=== PATIENT | male | born 1950 | race Caucasian/White ===

== ENCOUNTER 2017-12-06 14:03 | Emergency (ER) | payer MEDICARE, OTHER ==
[~2017-12-06] VITALS: Ht 185.4 cm; Wt 112.5 kg
[~2017-12-06 14:03] MED LIST: ACET500 PO; ASCO500 PO; ASPI325; ASPI325 PO; ATOR40TA PO; Advair Hfa 230-12 GM INH; Alavert D-12 A1 EACH PO; CALCIUM WITH V1 EACH PO; CARV3.125 PO; CARV6.25 PO; CENTRUM SILVER1 EAC2 PO; CLARITIN10 MG PO; CYAN500 PO; Carvedilol12.5 MG PO; DOCU100 PO; EZET10; FISH OIL 1,0001 EACH PO; FISH1000 PO; Flonase 0.05% N16 GM; GLUCOSAMINE1000 MG PO; HYDACE5; IBUP400 PO; LISI20 PO; LISI5 PO; Loratadine10 MG PO; METF500 PO; METO50ER; MULVITA; Multivitamin1 EAC1 PO; NITR.6SL PO; OMEP20ER PO; Omeprazole20 M1; PANT40 PO; ROSU10TA; RXSULTRIDS PO; SIMV40 PO; SPIR25 PO; SULTRIDS PO; TADA10TA PO; TRIA80TC TOP; Toprol Xl50 MG PO; VICKS VAPOINHA1 EACH INH
[2017-12-06 16:02] LABS: BASOPHILS ABSOLUTE AUTO 0.04 K/mm3 (0.00-0.23); BASOPHILS PERCENT AUTO 1 % (0-2); EOSINOPHILS ABSOLUTE AUTO 0.16 K/mm3 (0.00-0.68); EOSINOPHILS PERCENT AUTO 3 % (0-6); Hematocrit 39.9 % (37.0-53.0); Hemoglobin 14.4 g/dL (13.5-17.5); IMMATURE GRAN ABSOLUTE AUTO 0.01 K/mm3 (0.00-0.10); IMMATURE GRAN PERCENT AUTO 0 % (0-1); LYMPHOCYTES ABSOLUTE AUTO 2.07 K/mm3 (0.84-5.20); LYMPHOCYTES PERCENT AUTO 35 % (21-46); MONOCYTES ABSOLUTE AUTO 0.59 K/mm3 (0.16-1.47); MONOCYTES PERCENT AUTO 10 % (4-13); Mean Corpuscular HGB 34.1 pg (26.0-34.0); Mean Corpuscular HGB Conc 36.1 g/dL (31.5-36.5); Mean Corpuscular Volume 95 fL (80-100); Mean Platelet Volume 9.7 fL (9.1-12.4); NEUTROPHILS ABSOLUTE AUTO 2.99 K/mm3 (1.96-9.15); NEUTROPHILS PERCENT AUTO 51 % (41-73); Platelet Count 109 K/mm3 (150-400); RDW Coefficient Variation 11.9 % (11.7-14.2); RDW Standard Deviation 41.8 fL (35.1-46.3); Red Blood Cell Count 4.22 M/mm3 (4.30-5.90); White Blood Cell Count 5.86 K/mm3 (4.00-11.30)
[2017-12-06 16:26] LABS: Troponin I <0.015 ng/mL (0.000-0.040)
[2017-12-06 16:27] LABS: Alanine Aminotransfer (ALT/SGP 31 U/L (12-78); Albumin, Blood 4.3 g/dL (3.4-5.0); Albumin/Globulin Ratio 1.3 (0.8-1.8); Alk Phos 55 U/L (50-136); Anion Gap 4 mmol/L (6-16); Aspartate Aminotrans (AST/SGOT 19 U/L (12-37); Bilirubin, Total 0.8 mg/dL (0.1-1.0); Blood Urea Nitrogen 28 mg/dL (8-24); Bun/Creatinine Ratio 24.6 (12.0-20.0); CO2, Blood 29 mmol/L (21-32); Calcium, Blood 8.9 mg/dL (8.5-10.1); Chloride, Blood 105 mmol/L (98-108); Creatinine, Blood 1.14 mg/dL (0.60-1.20); Globulin, Blood 3.3 g/dL (2.2-4.0); Glomerular Filtration Rate >60 (60-); Glucose, Blood 106 mg/dL (70-99); Potassium, Blood 3.9 mmol/L (3.5-5.5); Sodium, Blood 138 mmol/L (136-145); Total Protein, Blood 7.6 g/dL (6.4-8.2)
[2017-12-06] MEDS ORDERED: [UNRECOGNIZED DRUG - OTHER] PO (16:31)
[2017-12-06] MEDS ORDERED: BONINE25 MG PO (18:45)
== END 2017-12-06 18:52 | disposition home or self-care (01) ==
LOC: ER 14:03
PROVIDERS: Emergency Medicine
DX: H81.10 Benign paroxysmal vertigo, unspecified ear (principal); Z79.899 Other long term (current) drug therapy; I25.10 Atherosclerotic heart disease of native coronary artery without angina pectoris; K21.9 Gastro-esophageal reflux disease without esophagitis; Z87.891 Personal history of nicotine dependence
CPT/HCPCS: 36415; 70450; 80053; 81000; 84484; 85025; 93005; 93010; 99284

== ENCOUNTER → 2018-05-25 | Outpatient (CLI) | payer MEDICARE, OTHER ==
[~2018-05-25] MED LIST changes: +BONINE25 MG PO; +[UNRECOGNIZED DRUG - OTHER] PO
[2018-05-25 14:33] LABS: Stool Occult Bld Immuno 1 Positive (NEGATIVE)
== END ==
LOC: LAB EV 09:30 → LAB FUT 05-11 18:10 → EDSTATUS 05-11 18:10
PROVIDERS: Student in an Organized Health Care Education/Training Program
DX: Z12.11 Encounter for screening for malignant neoplasm of colon (principal)
CPT/HCPCS: G0328

== ENCOUNTER 2019-02-05 12:01 | Emergency (ER) | payer MEDICARE, OTHER ==
[~2019-02-05] VITALS: Ht 185.4 cm; Wt 112.0 kg
[~2019-02-05 12:01] MED LIST changes: +CLOP75 PO; +Omeprazole20 M1 PO; +ZESTORETIC 20-1 EAC1 PO
[2019-02-05 12:25] LABS: BASOPHILS ABSOLUTE AUTO 0.04 K/mm3 (0.00-0.23); BASOPHILS PERCENT AUTO 1 % (0-2); EOSINOPHILS PERCENT AUTO 2 % (0-6); Hematocrit 40.9 % (37.0-53.0); Hemoglobin 13.9 g/dL (13.5-17.5); IMMATURE GRAN ABSOLUTE AUTO 0.01 K/mm3 (0.00-0.10); IMMATURE GRAN PERCENT AUTO 0 % (0-1); LYMPHOCYTES ABSOLUTE AUTO 1.75 K/mm3 (0.84-5.20); LYMPHOCYTES PERCENT AUTO 34 % (21-46); MONOCYTES ABSOLUTE AUTO 0.43 K/mm3 (0.16-1.47); MONOCYTES PERCENT AUTO 8 % (4-13); Mean Corpuscular HGB 31.7 pg (26.0-34.0); Mean Corpuscular Volume 93 fL (80-100); Mean Platelet Volume 9.7 fL (9.1-12.4); NEUTROPHILS ABSOLUTE AUTO 2.87 K/mm3 (1.96-9.15); NEUTROPHILS PERCENT AUTO 55 % (41-73); Platelet Count 128 K/mm3 (150-400); RDW Coefficient Variation 13.6 % (11.7-14.2); Red Blood Cell Count 4.39 M/mm3 (4.30-5.90)
[2019-02-05] MEDS ORDERED: ASPI81CH PO (12:43)
[2019-02-05 12:45] LABS: Alanine Aminotransfer (ALT/SGP 35 U/L (12-78); Albumin/Globulin Ratio 1.1 (0.8-1.8); Alk Phos 68 U/L (50-136); Anion Gap 5 mmol/L (6-16); Aspartate Aminotrans (AST/SGOT 25 U/L (12-37); Bilirubin, Total 0.5 mg/dL (0.1-1.0); Blood Urea Nitrogen 19 mg/dL (8-24); Bun/Creatinine Ratio 19.1 (12.0-20.0); CO2, Blood 27 mmol/L (21-32); Calcium, Blood 9.3 mg/dL (8.5-10.1); Chloride, Blood 106 mmol/L (98-108); Creatinine, Blood 0.99 mg/dL (0.60-1.20); Globulin, Blood 3.6 g/dL (2.2-4.0); Glomerular Filtration Rate >60 (60-); Glucose, Blood 114 mg/dL (70-99); Potassium, Blood 3.9 mmol/L (3.5-5.5); Sodium, Blood 138 mmol/L (136-145); Total Protein, Blood 7.6 g/dL (6.4-8.2)
[2019-02-05] MEDS ORDERED: ZESTORETIC 20-121 EA PO (12:45)
[2019-02-05] MEDS ORDERED: POTCHL10ER PO (12:46)
[2019-02-05] MEDS ORDERED: GINKGO BILOBA120 MG PO (12:48)
== END 2019-02-05 15:15 | disposition home or self-care (01) ==
LOC: ER 12:01
PROVIDERS: Emergency Medicine
DX: H81.399 Other peripheral vertigo, unspecified ear (principal); K21.9 Gastro-esophageal reflux disease without esophagitis; Z87.891 Personal history of nicotine dependence; Z79.899 Other long term (current) drug therapy; Z79.82 Long term (current) use of aspirin
CPT/HCPCS: 36415; 80053; 85025; 93005; 93010; 96360; 99284-25; J7030

== ENCOUNTER 2019-02-17 06:45 | Emergency (ER) | payer MEDICARE, OTHER ==
[~2019-02-17] VITALS: Ht 185.4 cm; Wt 108.9 kg
[~2019-02-17 06:45] MED LIST changes: +ASPI81CH PO; +GINKGO BILOBA120 MG PO; +POTCHL10ER PO; +ZESTORETIC 20-121 EA PO
[2019-02-17] MEDS ORDERED: OMEPRAZOLE20 MG PO (07:45)
[2019-02-17] MEDS ORDERED: ZESTORETIC 20-1 EACH PO (07:46)
== END 2019-02-17 07:53 | disposition home or self-care (01) ==
LOC: ER 06:45
DX: M79.671 Pain in right foot (principal); Z79.899 Other long term (current) drug therapy; Z79.82 Long term (current) use of aspirin; I11.0 Hypertensive heart disease with heart failure; I50.9 Heart failure, unspecified; E78.5 Hyperlipidemia, unspecified; K21.9 Gastro-esophageal reflux disease without esophagitis
CPT/HCPCS: 99283

== ENCOUNTER 2019-07-11 10:01 | Day surgery (SDC) | payer MEDICARE, OTHER ==
[~2019-07-11] VITALS: Ht 185.4 cm; Wt 108.9 kg
[~2019-07-11 10:01] MED LIST changes: +OMEPRAZOLE20 MG PO; +ZESTORETIC 20-1 EACH PO
[2019-07-11] MEDS ORDERED: SUPHEDRINE SINU30 MG (10:32)
--- NOTE | 2019-07-11 14:35 | NUR ---
07/11/19 1435 Marcelo Juárez LATE ENTRY-USED 14CC OF NORMAL SALINE IN RAISE POLYP AND 9CC ELEVIEW THEN USED SPOT MARKER ON RECTAL POLYP.
== END 2019-07-11 12:50 | disposition home or self-care (01) ==
LOC: ORSCSDS 10:01
PROVIDERS: Internal Medicine Gastroenterology
PROC: 0DBM8ZX Excision of Descending Colon, Via Natural or Artificial Opening Endoscopic, Diagnostic (ICD-10-PCS; principal; 2019-07-11 11:15)
PROC: 3E0H8GC Introduction of Other Therapeutic Substance into Lower GI, Via Natural or Artificial Opening Endoscopic (ICD-10-PCS; principal; 2019-07-11 11:15)
PROC: 0DBK8ZX Excision of Ascending Colon, Via Natural or Artificial Opening Endoscopic, Diagnostic (ICD-10-PCS; principal; 2019-07-11 11:15)
PROC: 0DBP8ZX Excision of Rectum, Via Natural or Artificial Opening Endoscopic, Diagnostic (ICD-10-PCS; principal; 2019-07-11 11:15)
DX: Z12.11 Encounter for screening for malignant neoplasm of colon (principal); Z86.010 Personal history of colon polyps; D12.2 Benign neoplasm of ascending colon; D12.4 Benign neoplasm of descending colon; D12.8 Benign neoplasm of rectum; I12.9 Hypertensive chronic kidney disease with stage 1 through stage 4 chronic kidney disease, or unspecified chronic kidney disease; N18.9 Chronic kidney disease, unspecified; I25.10 Atherosclerotic heart disease of native coronary artery without angina pectoris; Z87.891 Personal history of nicotine dependence; Z79.899 Other long term (current) drug therapy
CPT/HCPCS: 88305; J2704; J7120

== ENCOUNTER 2019-09-27 11:43 | Emergency (ER) | payer MEDICARE, OTHER ==
[~2019-09-27] VITALS: Ht 185.4 cm; Wt 107.5 kg
[~2019-09-27 11:43] MED LIST changes: +SUPHEDRINE SINU30 MG
[2019-09-27] MEDS ORDERED: HYDR1TAB94 PO (12:13)
[2019-09-27] MEDS ORDERED: CYCL10 PO (12:13)
== END 2019-09-27 12:32 | disposition home or self-care (01) ==
LOC: ER 11:43
DX: S46.911A Strain of unspecified muscle, fascia and tendon at shoulder and upper arm level, right arm, initial encounter (principal); I25.10 Atherosclerotic heart disease of native coronary artery without angina pectoris; I11.0 Hypertensive heart disease with heart failure; I50.9 Heart failure, unspecified; E78.5 Hyperlipidemia, unspecified; K21.9 Gastro-esophageal reflux disease without esophagitis; Z79.899 Other long term (current) drug therapy; Z79.01 Long term (current) use of anticoagulants; Z87.891 Personal history of nicotine dependence; X58.XXXA Exposure to other specified factors, initial encounter
CPT/HCPCS: 99283

== ENCOUNTER 2020-02-06 20:08 | Emergency (ER) | payer MEDICARE, OTHER ==
[~2020-02-06] VITALS: Ht 185.4 cm; Wt 108.9 kg
[~2020-02-06 20:08] MED LIST changes: +CYCL10 PO; +HYDR1TAB94 PO
[2020-02-06 20:58] LABS: BASOPHILS ABSOLUTE AUTO 0.04 K/mm3 (0.00-0.23); BASOPHILS PERCENT AUTO 1 % (0-2); EOSINOPHILS PERCENT AUTO 2 % (0-6); Hematocrit 41.6 % (37.0-53.0); Hemoglobin 14.4 g/dL (13.5-17.5); IMMATURE GRAN ABSOLUTE AUTO 0.01 K/mm3 (0.00-0.10); IMMATURE GRAN PERCENT AUTO 0 % (0-1); LYMPHOCYTES ABSOLUTE AUTO 2.29 K/mm3 (0.84-5.20); LYMPHOCYTES PERCENT AUTO 35 % (21-46); MONOCYTES ABSOLUTE AUTO 0.62 K/mm3 (0.16-1.47); MONOCYTES PERCENT AUTO 9 % (4-13); Mean Corpuscular HGB 32.1 pg (26.0-34.0); Mean Corpuscular HGB Conc 34.6 g/dL (31.5-36.5); Mean Corpuscular Volume 93 fL (80-100); Mean Platelet Volume 10.1 fL (9.1-12.4); NEUTROPHILS ABSOLUTE AUTO 3.54 K/mm3 (1.96-9.15); NEUTROPHILS PERCENT AUTO 54 % (41-73); Platelet Count 118 K/mm3 (150-400); RDW Coefficient Variation 12.9 % (11.7-14.2); RDW Standard Deviation 43.8 fL (35.1-46.3); Red Blood Cell Count 4.48 M/mm3 (4.30-5.90)
[2020-02-06 21:14] LABS: Alanine Aminotransfer (ALT/SGP 32 U/L (12-78); Albumin/Globulin Ratio 1.2 (0.8-1.8); Alk Phos 64 U/L (50-136); Anion Gap 4 mmol/L (6-16); Aspartate Aminotrans (AST/SGOT 22 U/L (12-37); Bilirubin, Total 0.4 mg/dL (0.1-1.0); Blood Urea Nitrogen 24 mg/dL (8-24); Bun/Creatinine Ratio 20.3 (12.0-20.0); CO2, Blood 27 mmol/L (21-32); Calcium, Blood 8.5 mg/dL (8.5-10.1); Chloride, Blood 109 mmol/L (98-108); Creatinine, Blood 1.18 mg/dL (0.60-1.20); Globulin, Blood 3.4 g/dL (2.2-4.0); Glomerular Filtration Rate >60 (60-); Glucose, Blood 113 mg/dL (70-99); Potassium, Blood 3.7 mmol/L (3.5-5.5); Sodium, Blood 140 mmol/L (136-145); Total Protein, Blood 7.4 g/dL (6.4-8.2)
== END 2020-02-07 00:44 | disposition home or self-care (01) ==
LOC: ER 20:08
PROVIDERS: Emergency Medicine
DX: I74.5 Embolism and thrombosis of iliac artery (principal); Z79.899 Other long term (current) drug therapy; I25.119 Atherosclerotic heart disease of native coronary artery with unspecified angina pectoris; K21.9 Gastro-esophageal reflux disease without esophagitis; Z87.891 Personal history of nicotine dependence
CPT/HCPCS: 36415; 74174; 80053; 85025; 99284-25; Q9967

== ENCOUNTER 2020-05-15 10:34 | Emergency (ER) | payer MEDICARE, OTHER ==
[~2020-05-15] VITALS: Ht 185.4 cm; Wt 108.9 kg
[~2020-05-15 10:34] MED LIST changes: +GINSENG PO
[2020-05-15 11:04] LABS: BASOPHILS ABSOLUTE AUTO 0.02 K/mm3 (0.00-0.23); BASOPHILS PERCENT AUTO 0 % (0-2); EOSINOPHILS ABSOLUTE AUTO 0.04 K/mm3 (0.00-0.68); EOSINOPHILS PERCENT AUTO 1 % (0-6); Hematocrit 37.6 % (37.0-53.0); Hemoglobin 13.4 g/dL (13.5-17.5); IMMATURE GRAN ABSOLUTE AUTO 0.02 K/mm3 (0.00-0.10); IMMATURE GRAN PERCENT AUTO 0 % (0-1); LYMPHOCYTES ABSOLUTE AUTO 1.21 K/mm3 (0.84-5.20); LYMPHOCYTES PERCENT AUTO 20 % (21-46); MONOCYTES PERCENT AUTO 8 % (4-13); Mean Corpuscular HGB 33.1 pg (26.0-34.0); Mean Corpuscular HGB Conc 35.6 g/dL (31.5-36.5); Mean Corpuscular Volume 93 fL (80-100); Mean Platelet Volume 9.9 fL (9.1-12.4); NEUTROPHILS ABSOLUTE AUTO 4.29 K/mm3 (1.96-9.15); NEUTROPHILS PERCENT AUTO 71 % (41-73); Platelet Count 115 K/mm3 (150-400); RDW Coefficient Variation 13.5 % (11.7-14.2); RDW Standard Deviation 45.6 fL (35.1-46.3); Red Blood Cell Count 4.05 M/mm3 (4.30-5.90); White Blood Cell Count 6.08 K/mm3 (4.00-11.30)
[2020-05-15 11:20] LABS: Alanine Aminotransfer (ALT/SGP 23 U/L (12-78); Albumin, Blood 3.5 g/dL (3.4-5.0); Alk Phos 77 U/L (50-136); Anion Gap 7 mmol/L (6-16); Aspartate Aminotrans (AST/SGOT 15 U/L (12-37); Bilirubin, Total 0.6 mg/dL (0.1-1.0); Blood Urea Nitrogen 19 mg/dL (8-24); Bun/Creatinine Ratio 15.3 (12.0-20.0); CO2, Blood 25 mmol/L (21-32); Calcium, Blood 8.8 mg/dL (8.5-10.1); Chloride, Blood 106 mmol/L (98-108); Creatinine, Blood 1.24 mg/dL (0.60-1.20); Globulin, Blood 3.6 g/dL (2.2-4.0); Glomerular Filtration Rate >60 (60-); Glucose, Blood 140 mg/dL (70-99); Potassium, Blood 3.6 mmol/L (3.5-5.5); Sodium, Blood 138 mmol/L (136-145); Total Protein, Blood 7.1 g/dL (6.4-8.2); Troponin I <0.015 ng/mL (0.000-0.040)
[2020-05-15 11:40] LABS: Source, Urine Voided
[2020-05-15 11:44] LABS: Appearance, Urine Clear (Clear); Bilirubin, Urine Neg (Neg); Blood, Urine Neg (Neg); Color, Urine Yellow (P-Yellow); Glucose Qualitative, Urine Neg (Neg); Ketones, Urine Neg (Neg); Leukocyte Esterase, Urine 1+ (Neg); Nitrite, Urine Neg (Neg); Protein, Urine 2+ (Neg); Specific Gravity, Urine 1.015 (1.003-1.022); Urobilinogen, Urine NORM (Normal)
[2020-05-15 12:15] LABS: Red Blood Cells, Urine 0-2 /hpf (0-2); Squamous Epithelial Cells Few /hpf (Few); White Blood Cells, Urine 0-2 /hpf (0-5)
[2020-05-15 12:16] LABS: Bacteria Rare /hpf; Granular Casts 0-2 /lpf (0); Mucus Mod (0-Heavy)
[2020-05-15] MEDS ORDERED: Coreg6.25 MG PO (13:11)
== END 2020-05-15 13:48 | disposition home or self-care (01) ==
LOC: ER 10:34
PROVIDERS: Emergency Medicine
DX: E87.8 Other disorders of electrolyte and fluid balance, not elsewhere classified (principal); I49.01 Ventricular fibrillation; K21.9 Gastro-esophageal reflux disease without esophagitis; I25.119 Atherosclerotic heart disease of native coronary artery with unspecified angina pectoris; Z95.810 Presence of automatic (implantable) cardiac defibrillator; Z79.899 Other long term (current) drug therapy; Z79.02 Long term (current) use of antithrombotics/antiplatelets; Z87.891 Personal history of nicotine dependence
CPT/HCPCS: 36415; 71045; 80053; 81001; 83735; 83880; 84484; 85025; 93005; 93010; 96360; 96361; 99284-25; J7030

== ENCOUNTER 2020-06-16 23:41 | Emergency (ER) | payer MEDICARE, OTHER ==
[~2020-06-16] VITALS: Ht 185.4 cm; Wt 107.5 kg
[~2020-06-16 23:41] MED LIST changes: +Coreg6.25 MG PO
[2020-06-17] MEDS ORDERED: LIDO700A20 TOP (02:21)
[2020-06-17] MEDS ORDERED: CYCL10 PO (02:21)
[2020-06-18] MEDS ORDERED: Amiodarone HCl200 MG PO (09:06)
[2020-06-18] MEDS ORDERED: OMEGA-3100 MG PO (09:08)
[2020-06-18] MEDS ORDERED: OXYACE7.5T PO (10:58)
[2020-06-18] MEDS ORDERED: PRED20 PO (10:58)
== END 2020-06-17 02:30 | disposition home or self-care (01) ==
LOC: ER 23:41
DX: S16.1XXA Strain of muscle, fascia and tendon at neck level, initial encounter (principal); I25.10 Atherosclerotic heart disease of native coronary artery without angina pectoris; K21.9 Gastro-esophageal reflux disease without esophagitis; Z79.02 Long term (current) use of antithrombotics/antiplatelets; Z79.899 Other long term (current) drug therapy; Z87.891 Personal history of nicotine dependence; Z95.810 Presence of automatic (implantable) cardiac defibrillator; X50.1XXA Overexertion from prolonged static or awkward postures, initial encounter
CPT/HCPCS: 99283; A9270-GY; J1885

== ENCOUNTER 2020-06-18 08:27 | Emergency (ER) | payer MEDICARE, OTHER ==
[~2020-06-18] VITALS: Ht 185.4 cm; Wt 107.5 kg
[~2020-06-18 08:27] MED LIST changes: +LIDO700A20 TOP
[2020-06-18] MEDS ORDERED: Amiodarone HCl200 MG PO (09:06)
[2020-06-18] MEDS ORDERED: OMEGA-3100 MG PO (09:08)
[2020-06-18] MEDS ORDERED: OXYACE7.5T PO (10:58)
[2020-06-18] MEDS ORDERED: PRED20 PO (10:58)
== END 2020-06-18 11:26 | disposition home or self-care (01) ==
LOC: ER 08:27
DX: M54.2 Cervicalgia (principal); R25.2 Cramp and spasm; K21.9 Gastro-esophageal reflux disease without esophagitis; I25.10 Atherosclerotic heart disease of native coronary artery without angina pectoris; Z79.02 Long term (current) use of antithrombotics/antiplatelets; Z79.899 Other long term (current) drug therapy; Z87.891 Personal history of nicotine dependence
CPT/HCPCS: 99283; J1100

== ENCOUNTER 2020-06-22 22:08 | Emergency (ER) | payer MEDICARE, OTHER ==
[~2020-06-22] VITALS: Ht 185.4 cm; Wt 108.9 kg
[~2020-06-22 22:08] MED LIST changes: +Amiodarone HCl200 MG PO; +OMEGA-3100 MG PO; +OXYACE7.5T PO; +PRED20 PO
== END 2020-06-23 00:25 | disposition home or self-care (01) ==
LOC: ER 22:08
DX: G89.29 Other chronic pain (principal); M54.5 Low back pain; I25.810 Atherosclerosis of coronary artery bypass graft(s) without angina pectoris; K21.9 Gastro-esophageal reflux disease without esophagitis; Z87.891 Personal history of nicotine dependence; Z79.02 Long term (current) use of antithrombotics/antiplatelets; Z79.899 Other long term (current) drug therapy; Z79.52 Long term (current) use of systemic steroids
CPT/HCPCS: 96372; 99283-25; J1170; J1885

== ENCOUNTER 2020-10-04 08:37 | Day surgery (SDC) | payer MEDICARE, OTHER ==
[~2020-10-04] VITALS: Ht 185.4 cm; Wt 98.2 kg
[~2020-10-04 08:37] MED LIST changes: +FISH OIL 1,2001 EAC1 PO; +Lasix20 MG PO
[2020-10-04 10:40] LABS: Anion Gap 3 mmol/L (6-16); Blood Urea Nitrogen 14 mg/dL (8-24); Bun/Creatinine Ratio 14.2 (12.0-20.0); CO2, Blood 31 mmol/L (21-32); Calcium, Blood 8.5 mg/dL (8.5-10.1); Chloride, Blood 102 mmol/L (98-108); Creatinine, Blood 0.99 mg/dL (0.60-1.20); Glomerular Filtration Rate >60 (60-); Glucose, Blood 107 mg/dL (70-99); Potassium, Blood 4.1 mmol/L (3.5-5.5); Sodium, Blood 136 mmol/L (136-145)
--- NOTE | 2020-10-04 15:36 | NUR ---
PT DRESSED, IV DC'D INTACT, R GROIN SITE STABLE, PT AMB TO BTR OK, CALLED FOR RIDE HOME, WILL DC BY WC SHORTLY
--- NOTE | 2020-10-04 16:00 | NUR ---
PT DC'D BY WC, CAREGIVER DRIVING PT HOME
== END 2020-10-04 16:18 | disposition home or self-care (01) ==
LOC: MHTC 08:37
PROVIDERS: Internal Medicine Cardiovascular Disease
DX: I25.118 Atherosclerotic heart disease of native coronary artery with other forms of angina pectoris (principal); I49.01 Ventricular fibrillation; I47.2 Ventricular tachycardia; E78.5 Hyperlipidemia, unspecified; G47.33 Obstructive sleep apnea (adult) (pediatric); I25.5 Ischemic cardiomyopathy; I25.2 Old myocardial infarction; E11.9 Type 2 diabetes mellitus without complications; Z95.1 Presence of aortocoronary bypass graft; Z95.810 Presence of automatic (implantable) cardiac defibrillator; Z87.891 Personal history of nicotine dependence; Z86.73 Personal history of transient ischemic attack (TIA), and cerebral infarction without residual deficits
CPT/HCPCS: 76937; 80048; 93005; 93010; 93455; 93459; 99152; 99153; A9270; C1769; C1894; J1644; J2250; J3010; J7030; J7050; Q9967

== ENCOUNTER 2020-11-06 15:19 | Emergency (ER) | payer MEDICARE, OTHER ==
[~2020-11-06] VITALS: Ht 185.4 cm; Wt 98.9 kg
[2020-11-06 15:55] LABS: BASOPHILS ABSOLUTE AUTO 0.02 K/mm3 (0.00-0.23); BASOPHILS PERCENT AUTO 0 % (0-2); EOSINOPHILS PERCENT AUTO 0 % (0-6); Hematocrit 31.3 % (37.0-53.0); Hemoglobin 10.8 g/dL (13.5-17.5); IMMATURE GRAN ABSOLUTE AUTO 0.03 K/mm3 (0.00-0.10); IMMATURE GRAN PERCENT AUTO 0 % (0-1); LYMPHOCYTES ABSOLUTE AUTO 0.65 K/mm3 (0.84-5.20); LYMPHOCYTES PERCENT AUTO 9 % (21-46); MONOCYTES ABSOLUTE AUTO 0.42 K/mm3 (0.16-1.47); MONOCYTES PERCENT AUTO 6 % (4-13); Mean Corpuscular HGB 32.6 pg (26.0-34.0); Mean Corpuscular HGB Conc 34.5 g/dL (31.5-36.5); Mean Corpuscular Volume 95 fL (80-100); Mean Platelet Volume 10.9 fL (9.1-12.4); NEUTROPHILS ABSOLUTE AUTO 6.25 K/mm3 (1.96-9.15); NEUTROPHILS PERCENT AUTO 85 % (41-73); Platelet Count 86 K/mm3 (150-400); RDW Coefficient Variation 14.2 % (11.7-14.2); RDW Standard Deviation 48.3 fL (35.1-46.3); Red Blood Cell Count 3.31 M/mm3 (4.30-5.90); White Blood Cell Count 7.37 K/mm3 (4.00-11.30)
[2020-11-06 16:15] LABS: Alanine Aminotransfer (ALT/SGP 21 U/L (12-78); Albumin, Blood 2.8 g/dL (3.4-5.0); Albumin/Globulin Ratio 0.7 (0.8-1.8); Alk Phos 69 U/L (50-136); Anion Gap 8 mmol/L (6-16); Aspartate Aminotrans (AST/SGOT 15 U/L (12-37); Bilirubin, Total 0.6 mg/dL (0.1-1.0); Blood Urea Nitrogen 23 mg/dL (8-24); Bun/Creatinine Ratio 22.3 (12.0-20.0); CO2, Blood 26 mmol/L (21-32); Calcium, Blood 8.4 mg/dL (8.5-10.1); Chloride, Blood 92 mmol/L (98-108); Creatinine, Blood 1.03 mg/dL (0.60-1.20); Globulin, Blood 3.8 g/dL (2.2-4.0); Glomerular Filtration Rate >60 (60-); Glucose, Blood 142 mg/dL (70-99); Potassium, Blood 3.8 mmol/L (3.5-5.5); Sodium, Blood 126 mmol/L (136-145); Total Protein, Blood 6.6 g/dL (6.4-8.2)
[2020-11-06] MEDS ORDERED: METO25ER (17:33)
[2020-11-06] MEDS ORDERED: HYDCHL25 (17:33)
== END 2020-11-06 18:53 | disposition home or self-care (01) ==
LOC: ER 15:19
PROVIDERS: Emergency Medicine
DX: R53.81 Other malaise (principal); R53.83 Other fatigue; R63.0 Anorexia; Z79.02 Long term (current) use of antithrombotics/antiplatelets; Z79.899 Other long term (current) drug therapy
CPT/HCPCS: 36415; 80053; 85025; 93005; 93010; 99284-25

== ENCOUNTER 2020-11-11 11:12 | Inpatient (IN) | payer MEDICARE, OTHER ==
[~2020-11-11] VITALS: Ht 185.4 cm; Wt 97.0 kg
[~2020-11-11 11:12] MED LIST changes: +HYDCHL25; +METO25ER
[2020-11-11 12:06] LABS: BASOPHILS ABSOLUTE AUTO 0.03 K/mm3 (0.00-0.23); BASOPHILS PERCENT AUTO 0 % (0-2); EOSINOPHILS PERCENT AUTO 0 % (0-6); Hematocrit 35.3 % (37.0-53.0); Hemoglobin 12.2 g/dL (13.5-17.5); IMMATURE GRAN ABSOLUTE AUTO 0.11 K/mm3 (0.00-0.10); IMMATURE GRAN PERCENT AUTO 1 % (0-1); LYMPHOCYTES ABSOLUTE AUTO 0.48 K/mm3 (0.84-5.20); LYMPHOCYTES PERCENT AUTO 4 % (21-46); MONOCYTES ABSOLUTE AUTO 0.81 K/mm3 (0.16-1.47); MONOCYTES PERCENT AUTO 6 % (4-13); Mean Corpuscular HGB 33.2 pg (26.0-34.0); Mean Corpuscular HGB Conc 34.6 g/dL (31.5-36.5); Mean Corpuscular Volume 96 fL (80-100); Mean Platelet Volume 11.4 fL (9.1-12.4); NEUTROPHILS ABSOLUTE AUTO 12.46 K/mm3 (1.96-9.15); NEUTROPHILS PERCENT AUTO 90 % (41-73); Platelet Count 73 K/mm3 (150-400); RDW Coefficient Variation 15.7 % (11.7-14.2); RDW Standard Deviation 51.3 fL (35.1-46.3); Red Blood Cell Count 3.67 M/mm3 (4.30-5.90); White Blood Cell Count 13.89 K/mm3 (4.00-11.30)
[2020-11-11 12:35] LABS: Alanine Aminotransfer (ALT/SGP 424 U/L (12-78); Albumin, Blood 2.8 g/dL (3.4-5.0); Albumin/Globulin Ratio 0.7 (0.8-1.8); Alk Phos 117 U/L (50-136); Anion Gap 14 mmol/L (6-16); Aspartate Aminotrans (AST/SGOT 449 U/L (12-37); Bilirubin, Total 1.4 mg/dL (0.1-1.0); Blood Urea Nitrogen 42 mg/dL (8-24); Bun/Creatinine Ratio 35.6 (12.0-20.0); CO2, Blood 20 mmol/L (21-32); Calcium, Blood 8.9 mg/dL (8.5-10.1); Chloride, Blood 84 mmol/L (98-108); Creatinine, Blood 1.18 mg/dL (0.60-1.20); Globulin, Blood 3.9 g/dL (2.2-4.0); Glomerular Filtration Rate >60 (60-); Glucose, Blood 141 mg/dL (70-99); Potassium, Blood 5.3 mmol/L (3.5-5.5); Sodium, Blood 118 mmol/L (136-145); Total Protein, Blood 6.7 g/dL (6.4-8.2)
[2020-11-11 15:01] LABS: Source, Urine Voided
[2020-11-11 15:04] LABS: Appearance, Urine Clear (Clear); Blood, Urine 2+ (Neg); Color, Urine Amber (P-Yellow); Glucose Qualitative, Urine Neg (Neg); Ketones, Urine 1+ (Neg); Leukocyte Esterase, Urine 1+ (Neg); Nitrite, Urine Neg (Neg); Protein, Urine 3+ (Neg); Specific Gravity, Urine 1.025 (1.003-1.022); Urobilinogen, Urine 1+ (Normal)
[2020-11-11 15:08] LABS: Osmolality, Urine 701 mos/kg (15-1400)
[2020-11-11 15:23] LABS: Bilirubin, Urine 1+ (Neg)
[2020-11-11 15:31] LABS: Bacteria Mod /hpf; Mucus Light (0-Heavy); Squamous Epithelial Cells Few /hpf (Few)
[2020-11-11 15:50] LABS: CHOL/HDL RATIO 3.7; Cholesterol 146 mg/dL (50-200); HDL Cholesterol 39 mg/dL (>39); LDL/HDL RATIO 2.2; Low Density Lipoprotein Chol 85 mg/dL (0-110); Triglycerides 112 mg/dL (30-160); Very Low Density Lipoprot Chol 22 mg/dL (6-32)
[2020-11-11 16:30] LABS: Sodium, Urine, Random <5 mmol/L (20-110)
[2020-11-11 17:58] LABS: Bun/Creatinine Ratio 33.1 (12.0-20.0); Calcium, Blood 8.5 mg/dL (8.5-10.1); Creatinine, Blood 1.39 mg/dL (0.60-1.20); Potassium, Blood 5.3 mmol/L (3.5-5.5)
--- NOTE | 2020-11-11 19:23 | NUR ---
PT ADMITTED FROM ER FOR DX: CEREBRAL HYPONATREMIA. PT ARRIVES A&O, RESP MILDLY TACHYPNEIC, SINUS RHYTHM ON MONITOR. PT PALE, COOL, VERY WEAK, MAX ASSIST. ECHO COMPLETE IN ER, RESULTS SHOW LARGE AORTIC VEGETATION. PT IS PENDING TRANSFER TO [facility]. REPORT GIVEN TO MELISSA GAY TO ASSUME CARE OF PT WHILE PENDING TRANSFER.
== END 2020-11-11 20:26 | disposition short-term general hospital (02) | DRG 640 ==
LOC: ER 11:12 → ERHOLD 15:08 → PCU 17:56
PROVIDERS: Emergency Medicine; ADMIT Family Medicine
DX: E87.1 Hypo-osmolality and hyponatremia (principal); I33.0 Acute and subacute infective endocarditis; I50.23 Acute on chronic systolic (congestive) heart failure; E78.5 Hyperlipidemia, unspecified; I25.10 Atherosclerotic heart disease of native coronary artery without angina pectoris; K21.9 Gastro-esophageal reflux disease without esophagitis; Z66 Do not resuscitate; G47.33 Obstructive sleep apnea (adult) (pediatric); I11.0 Hypertensive heart disease with heart failure; E86.9 Volume depletion, unspecified; I08.3 Combined rheumatic disorders of mitral, aortic and tricuspid valves; T50.2X5A Adverse effect of carbonic-anhydrase inhibitors, benzothiadiazides and other diuretics, initial encounter; R79.89 Other specified abnormal findings of blood chemistry; Z95.1 Presence of aortocoronary bypass graft; Z90.89 Acquired absence of other organs; Z98.890 Other specified postprocedural states; Z98.52 Vasectomy status; Z79.02 Long term (current) use of antithrombotics/antiplatelets; Z79.899 Other long term (current) drug therapy; Z95.810 Presence of automatic (implantable) cardiac defibrillator; I25.2 Old myocardial infarction
CPT/HCPCS: 36415; 71045; 80048; 80053; 80061; 81001; 83880; 83935; 84145; 84300; 84443; 85025; 87040; 87077; 87086; 87186; 87449; 93005; 93010; 93308; 93321; 99285-25; A9270; J1650; J7030

== ENCOUNTER 2021-02-19 15:51 | Emergency (ER) | payer MEDICARE, OTHER ==
[~2021-02-19] VITALS: Ht 185.4 cm; Wt 84.4 kg
[2021-02-19 16:27] LABS: BASOPHILS ABSOLUTE AUTO 0.03 K/mm3 (0.00-0.23); BASOPHILS PERCENT AUTO 1 % (0-2); EOSINOPHILS PERCENT AUTO 0 % (0-6); Hematocrit 34.8 % (37.0-53.0); Hemoglobin 12.1 g/dL (13.5-17.5); IMMATURE GRAN ABSOLUTE AUTO 0.02 K/mm3 (0.00-0.10); IMMATURE GRAN PERCENT AUTO 1 % (0-1); LYMPHOCYTES ABSOLUTE AUTO 0.75 K/mm3 (0.84-5.20); LYMPHOCYTES PERCENT AUTO 24 % (21-46); MONOCYTES PERCENT AUTO 13 % (4-13); Mean Corpuscular HGB Conc 34.8 g/dL (31.5-36.5); Mean Corpuscular Volume 101 fL (80-100); Mean Platelet Volume 10.7 fL (9.1-12.4); NEUTROPHILS ABSOLUTE AUTO 1.87 K/mm3 (1.96-9.15); NEUTROPHILS PERCENT AUTO 61 % (41-73); Platelet Count 69 K/mm3 (150-400); RDW Coefficient Variation 14.1 % (11.7-14.2); Red Blood Cell Count 3.46 M/mm3 (4.30-5.90); White Blood Cell Count 3.07 K/mm3 (4.00-11.30)
[2021-02-19 16:48] LABS: Alanine Aminotransfer (ALT/SGP 24 U/L (12-78); Albumin, Blood 3.7 g/dL (3.4-5.0); Albumin/Globulin Ratio 1.3 (0.8-1.8); Alk Phos 69 U/L (50-136); Anion Gap 5 mmol/L (6-16); Aspartate Aminotrans (AST/SGOT 21 U/L (12-37); Bilirubin, Total 0.5 mg/dL (0.1-1.0); Blood Urea Nitrogen 12 mg/dL (8-24); Bun/Creatinine Ratio 13.6 (12.0-20.0); CO2, Blood 31 mmol/L (21-32); Calcium, Blood 8.4 mg/dL (8.5-10.1); Chloride, Blood 103 mmol/L (98-108); Creatinine, Blood 0.88 mg/dL (0.60-1.20); Globulin, Blood 2.9 g/dL (2.2-4.0); Glomerular Filtration Rate >60 (60-); Glucose, Blood 115 mg/dL (70-99); Sodium, Blood 139 mmol/L (136-145); Total Protein, Blood 6.6 g/dL (6.4-8.2); Troponin I <0.015 ng/mL (0.000-0.040)
[2021-02-19] MEDS ORDERED: SERT50 PO (18:25)
[2021-02-19] MEDS ORDERED: FURO40 PO (18:25)
== END 2021-02-19 19:57 | disposition home or self-care (01) ==
LOC: ER 15:51
PROVIDERS: Physician Assistant
DX: I47.9 Paroxysmal tachycardia, unspecified (principal); E87.6 Hypokalemia; I11.0 Hypertensive heart disease with heart failure; I50.9 Heart failure, unspecified; Z79.02 Long term (current) use of antithrombotics/antiplatelets; Z79.899 Other long term (current) drug therapy
CPT/HCPCS: 36415; 71045; 80053; 83690; 84484; 85025; 93005; 93010; 99284-25; A9270

== ENCOUNTER 2022-02-13 15:58 | Emergency (ER) | payer MEDICARE, OTHER ==
[~2022-02-13] VITALS: Ht 185.4 cm; Wt 104.3 kg
[~2022-02-13 15:58] MED LIST changes: +B12-FOLIC ACID1 EACH; +COLCHICINE0.6 MG PO; +FISH OIL 1,2001 EAC4 PO; +FLONASE ALLERG9.9 M2; +FURO40 PO; +HYDCHL12.5 PO; +Preservision S1 EACH; +SERT50 PO
[2022-02-13] MEDS ORDERED: AMOCLA875 PO (16:48)
== END 2022-02-13 16:46 | disposition home or self-care (01) ==
LOC: ER 15:58
DX: J32.9 Chronic sinusitis, unspecified (principal); I25.10 Atherosclerotic heart disease of native coronary artery without angina pectoris; I11.0 Hypertensive heart disease with heart failure; I50.9 Heart failure, unspecified; E78.5 Hyperlipidemia, unspecified; Z95.1 Presence of aortocoronary bypass graft; Z79.899 Other long term (current) drug therapy
CPT/HCPCS: 99282

== ENCOUNTER 2022-08-27 03:46 | Emergency (ER) | payer MEDICARE, OTHER ==
[~2022-08-27] VITALS: Ht 188 cm; Wt 90.7 kg
[~2022-08-27 03:46] MED LIST changes: +ALDACTONE25 MG PO; +AMOCLA875 PO; +B-121000 MC3 PO; +FERSU300 PO; +FUROSEMIDE40 MG PO; +METOPROLOL SUCC25 MG PO; +PLAVIX75 MG PO; +POTA8 PO; +Vitamin D1000 UNI1 PO
[2022-08-27 04:15] LABS: BASOPHILS ABSOLUTE AUTO 0.02 K/mm3 (0.00-0.23); BASOPHILS PERCENT AUTO 0 % (0-2); EOSINOPHILS ABSOLUTE AUTO 0.02 K/mm3 (0.00-0.68); EOSINOPHILS PERCENT AUTO 0 % (0-6); Hematocrit 30.7 % (37.0-53.0); Hemoglobin 10.2 g/dL (13.5-17.5); IMMATURE GRAN ABSOLUTE AUTO 0.03 K/mm3 (0.00-0.10); IMMATURE GRAN PERCENT AUTO 1 % (0-1); LYMPHOCYTES ABSOLUTE AUTO 0.81 K/mm3 (0.84-5.20); LYMPHOCYTES PERCENT AUTO 16 % (21-46); MONOCYTES ABSOLUTE AUTO 0.64 K/mm3 (0.16-1.47); MONOCYTES PERCENT AUTO 12 % (4-13); Mean Corpuscular HGB 31.3 pg (26.0-34.0); Mean Corpuscular HGB Conc 33.2 g/dL (31.5-36.5); Mean Corpuscular Volume 94 fL (80-100); NEUTROPHILS PERCENT AUTO 71 % (41-73); RDW Coefficient Variation 18.8 % (11.7-14.2); RDW Standard Deviation 64.3 fL (35.1-46.3); Red Blood Cell Count 3.26 M/mm3 (4.30-5.90); White Blood Cell Count 5.22 K/mm3 (4.00-11.30)
[2022-08-27 04:36] LABS: Albumin, Blood 2.7 g/dL (3.4-5.0); Albumin/Globulin Ratio 0.8 (0.8-1.8); Bilirubin, Total 0.7 mg/dL (0.1-1.0); Bun/Creatinine Ratio 17.1 (12.0-20.0); Calcium, Blood 8.3 mg/dL (8.5-10.1); Creatinine, Blood 1.11 mg/dL (0.60-1.20); Globulin, Blood 3.6 g/dL (2.2-4.0); Total Protein, Blood 6.3 g/dL (6.4-8.2)
[2022-08-27 04:44] LABS: Platelet Count 36 K/mm3 (150-400)
[2022-08-27 04:46] LABS: Magnesium, Blood 2.3 mg/dL (1.6-2.4)
[2022-08-27 07:06] LABS: Influenza A, PCR NEGATIVE (NEGATIVE); Influenza B, PCR NEGATIVE (NEGATIVE); Resp Syncytial Virus, PCR NEGATIVE (NEGATIVE); SARS-Cov-2 (COVID-19) PCR, MMC NEGATIVE (NEGATIVE)
--- NOTE | 2022-08-27 12:32 | NUR ---
Received Palliative Care consult this morning on this pt who was brought into ED via ambulance. He c/o severe diarrhea x's 1 week. He appears pale, weak with bilat hand tremors. He reports tremors are of unknown etiology, but not new. He reports living alone in his home, reports he is "no longer able to care for" himself. Pt's was placed at [facility] in 2020 while pt was in a [facility] for a cardiac surgery. Since that time, pt's health has declined, and he now c/o multiple falls, severe weakness, fatigue and SOB. He reports "going hungry", as he has no way to shop for groceries, or make meals even if he did have groceries. He has CAD and CHF, Hx of CABG, ischemic cariomyopathy, CVA, V-tach and has a dual chamber AICD. It has been replaced after shocking pt more than once. Pt also had large vegetation noted on cardiac echo in 2020. Pt c/o bowel incontinence over the past several days while also having "explosive diarrhea" in his bathroom and several other areas in his home. I spoke to both pt's sister in law Vanita and pt's brother Bello, who will be assisting in getting the floors cleaned in the home. Pt was evaluated by PT in the ER and was consequently accepted into [facility] for skilled care, PT. He will be following up with [facility] for placement.
== END 2022-08-27 16:16 ==
LOC: ER 03:46
PROVIDERS: Student in an Organized Health Care Education/Training Program
DX: K52.1 Toxic gastroenteritis and colitis (principal); T47.4X5A Adverse effect of other laxatives, initial encounter; R53.1 Weakness; I11.0 Hypertensive heart disease with heart failure; I50.9 Heart failure, unspecified; I25.10 Atherosclerotic heart disease of native coronary artery without angina pectoris; Z95.1 Presence of aortocoronary bypass graft; Z79.899 Other long term (current) drug therapy
CPT/HCPCS: 0241U; 80053; 83735; 85025; 96360; 97116; 97162; 97530; 99285-25; A9270; J7030